=== PATIENT | male | born 1955 | race Caucasian/White ===

== ENCOUNTER 2018-07-21 08:38 | Inpatient (IN) | payer MEDICAID ==
[~2018-07-21] VITALS: Ht 180.3 cm; Wt 63.6 kg
[2018-07-21] MEDS ORDERED: normal saline 1000ML IV soln IVB ONE ×2 (09:10)
[2018-07-21] MEDS ORDERED: ondansetron/PF 4mg/2ml inj IV ONE ×2 (09:10→11:35)
[2018-07-21] MEDS ORDERED: morphine 2 MG/ML inj. syringe IV PRN (09:10)
[2018-07-21] MEDS ORDERED: morphine 4 MG/ML inj SYRINge IV ONE (09:10)
[2018-07-21 09:44] LABS: BASOPHILS % (AUTO) 0.3 % (0-1); EOSINOPHILS % (AUTO) 0 % (0-6); HEMATOCRIT 40.3 % (42.0-52.0); HEMOGLOBIN 13.6 g/dl (14.0-17.9); LYMPHOCYTES # (AUTO) 0.6 X10'3 (1.1-4.8); LYMPHOCYTES % (AUTO) 10.9 % (21-51); MEAN CORPUSCULAR HEMOGLOBIN 31.6 PG (27.0-31.0); MEAN CORPUSCULAR HGB CONC 33.7 % (33.0-36.5); MEAN CORPUSCULAR VOLUME 93.8 FL (78-98); MEAN PLATELET VOLUME 8.3 FL (7.4-10.4); MONOCYTES # (AUTO) 0.2 X10'3 (0-0.9); NEUTROPHILS # (AUTO) 4.9 X10'3 (1.8-7.7); NEUTROPHILS % (AUTO) 85.8 % (42-75); PLATELET COUNT 275 X10'3 (140-440); RED CELL DISTRIBUTION WIDTH 14.8 % (11.5-14.5); WHITE BLOOD COUNT 5.7 X10'3 (4.5-11.0)
[2018-07-21 09:58] LABS: ALANINE AMINOTRANSFERASE 14 U/L (12-78); ALBUMIN 3.9 G/DL (3.4-5.0); ALBUMIN/GLOBULIN RATIO 1.4 (1.1-1.5); ALKALINE PHOSPHATASE 78 IU/L (46-116); ANION GAP 12 (8-16); ASPARTATE AMINO TRANSFERASE 14 U/L (10-37); BILIRUBIN,TOTAL 0.9 MG/DL (0.1-1.0); BLOOD UREA NITROGEN 8 MG/DL (7-18); CALCIUM 9.4 MG/DL (8.5-10.1); CHLORIDE 105 MMOL/L (99-107); CREATININE 0.89 MG/DL (0.60-1.10); GLUCOSE 142 MG/DL (70-104); LIPASE 116 U/L (73-393); POTASSIUM 3.4 MMOL/L (3.5-5.1); SODIUM 140 MMOL/L (135-145); TOTAL CARBON DIOXIDE 23.2 MMOL/L (24-32); TOTAL PROTEIN 6.7 G/DL (6.4-8.2); eGFR 86 ML/MIN
[2018-07-21 10:38] LABS: CLARITY,URINE SLIGHTLY CLOUDY (Clear); COLOR,URINE YELLOW (Yellow); GLUCOSE, URINE NEGATIVE (Neg); KETONES,URINE 15 mg/dl (Neg); LEUKOCYTE ESTERASE ,URINE NEGATIVE (Neg); NITRITES, URINE NEGATIVE (Neg); OCCULT BLOOD,URINE NEGATIVE (Neg); PH,URINE 8.5 (4.8-8.0); PROTEIN,URINE NEGATIVE (Neg); UA COLLECTION TYPE CLN CATCH MIDSTREAM; UROBILINOGEN,URINE 0.2 E.U/dL (0.2-1.0)
[2018-07-21 10:45] LABS: MUCUS STRANDS FEW /LPF (Neg); SQUAMOUS EPITHELIAL CELL,UR FEW /LPF (FEW)
[2018-07-21 10:46] LABS: BACTERIA,URINE NONE SEEN /HPF (Neg); RBC,URINE 0-2 /HPF (0-2); TRANSITIONAL EPI CELLS,URINE FEW /HPF; WBC,URINE NONE SEEN /HPF (0-4)
[2018-07-21] MEDS: K and/or MAG REPLACEMENT MC SCH (12:25)
[2018-07-21] MEDS ORDERED: magnesium hydroxide 30ml (MOM) UD suspension PO PRN (12:25)
[2018-07-21] MEDS ORDERED: mag hydrox/Alum hydrox/simeth 30ml oral suspension PO PRN (12:25)
[2018-07-21] MEDS ORDERED: potassium Cl 20 mEq SR tablet PO PRN ×2 (12:25)
[2018-07-21] MEDS ORDERED: magnesium 1gm/100ml D5W IVPB 100 ML IV PRN (12:25)
[2018-07-21] MEDS ORDERED: potassium Cl 40MEQ/NS 500ml 500 ML IV PRN ×2 (12:25)
[2018-07-21] MEDS ORDERED: acetaminophen 325mg tablet PO PRN ×2 (12:25)
[2018-07-21] MEDS ORDERED: magnesium 4gm in 100ml NS 100 ML IV PRN (12:25)
[2018-07-21] MEDS ORDERED: proCHLORperazine 10 MG/2 ml inj IV ONE (12:25)
[2018-07-21] MEDS ORDERED: ondansetron/PF 4mg/2ml inj IV PRN (12:25)
[2018-07-21] MEDS ORDERED: magnesium Cl slow-release 64mg tablet PO PRN (12:25)
[2018-07-21] MEDS ORDERED: ENZA40CA PO (13:06)
[2018-07-21] MEDS ORDERED: FLO0.4C PO (13:06)
[2018-07-21] MEDS ORDERED: FURO-150 PO (13:07)
[2018-07-21] MEDS ORDERED: POTA20PA40 PO (13:07)
[2018-07-21] MEDS ORDERED: SENN1TAB6 PO (13:08)
[2018-07-21] MEDS ORDERED: MELA3TAB PO (13:08)
[2018-07-21] MEDS ORDERED: PER10325T PO (13:09)
[2018-07-21] MEDS: potassium Cl 20mEq in NS 1,000 ML IV SCH (15:11)
[2018-07-21 17:48] VITALS: BP 134/73
[2018-07-21 18:40] VITALS: BP 125/63
[2018-07-21] MEDS: proCHLORperazine 10 MG/2 ml inj IV PRN (18:52)
[2018-07-21] MEDS: oxyCODONE/APAP 10/325mg tablet PO PRN ×2 (18:57→23:30)
[2018-07-21] MEDS ORDERED: Melatonin 3mg tablet PO SCH (21:00)
[2018-07-22] VITALS: BP 130/61
[2018-07-22] MEDS: proCHLORperazine 10 MG/2 ml inj IV PRN (01:08)
[2018-07-22] MEDS: potassium Cl 20mEq in NS 1,000 ML IV SCH ×2 (01:16→08:25)
[2018-07-22] MEDS: oxyCODONE/APAP 10/325mg tablet PO PRN ×2 (04:49→09:03)
[2018-07-22 05:26] LABS: BASOPHILS % (AUTO) 0.2 % (0-1); EOSINOPHILS # (AUTO) 0.1 X10'3 (0-0.9); HEMATOCRIT 34.1 % (42.0-52.0); HEMOGLOBIN 11.4 g/dl (14.0-17.9); LYMPHOCYTES # (AUTO) 1.4 X10'3 (1.1-4.8); LYMPHOCYTES % (AUTO) 19.5 % (21-51); MEAN CORPUSCULAR HEMOGLOBIN 31.4 PG (27.0-31.0); MEAN CORPUSCULAR HGB CONC 33.3 % (33.0-36.5); MEAN CORPUSCULAR VOLUME 94.3 FL (78-98); MEAN PLATELET VOLUME 8.7 FL (7.4-10.4); MONOCYTES # (AUTO) 0.7 X10'3 (0-0.9); NEUTROPHILS % (AUTO) 69.3 % (42-75); PLATELET COUNT 201 X10'3 (140-440); RED BLOOD COUNT 3.62 X10'6 (4.70-6.10); RED CELL DISTRIBUTION WIDTH 14.6 % (11.5-14.5); WHITE BLOOD COUNT 7.3 X10'3 (4.5-11.0)
[2018-07-22 05:39] LABS: ALANINE AMINOTRANSFERASE 11 U/L (12-78); ALBUMIN 2.9 G/DL (3.4-5.0); ALBUMIN/GLOBULIN RATIO 1.2 (1.1-1.5); ALKALINE PHOSPHATASE 62 IU/L (46-116); ANION GAP 8 (8-16); ASPARTATE AMINO TRANSFERASE 13 U/L (10-37); BILIRUBIN,TOTAL 0.8 MG/DL (0.1-1.0); BLOOD UREA NITROGEN 7 MG/DL (7-18); BUN/CREATININE RATIO 10.8 (5.4-32.0); CHLORIDE 106 MMOL/L (99-107); CREATININE 0.65 MG/DL (0.60-1.10); GLUCOSE 105 MG/DL (70-104); MAGNESIUM 1.5 MG/DL (1.5-2.4); POTASSIUM 3.6 MMOL/L (3.5-5.1); SODIUM 136 MMOL/L (135-145); TOTAL CARBON DIOXIDE 21.9 MMOL/L (24-32); TOTAL PROTEIN 5.3 G/DL (6.4-8.2); eGFR > 90 ML/MIN
[2018-07-22 07:00] VITALS: BP 115/51
[2018-07-22] MEDS ORDERED: tamsulosin 0.4mg capsule PO SCH (08:00)
[2018-07-22] MEDS ORDERED: potassium Cl 20 mEq SR tablet PO SCH (08:00)
[2018-07-22] MEDS ORDERED: ENZALUTAMIDE PO SCH (08:00)
[2018-07-22] MEDS ORDERED: XTANDI 40 MG PO SCH (08:00)
[2018-07-22] MEDS: K and/or MAG REPLACEMENT MC SCH (08:00)
[2018-07-22] MEDS ORDERED: sennosides/docusate sodium tablet PO SCH (08:00)
[2018-07-22 11:00] VITALS: BP 115/51
[2018-07-22] MEDS ORDERED: PROC-8 PO (11:10)
[2018-07-22] MEDS ORDERED: oxyCODONE/APAP 10/325mg tablet PO PRN (11:10)
== END 2018-07-22 15:15 | disposition home or self-care (01) | DRG 249 ==
LOC: ER 08:39 → SUR 3N 13:08
PROVIDERS: ADMIT Family Medicine; ATTEND Family Medicine
DX: R11.2 Nausea with vomiting, unspecified (principal); C79.51 Secondary malignant neoplasm of bone; C79.89 Secondary malignant neoplasm of other specified sites; C61 Malignant neoplasm of prostate; E86.0 Dehydration; E87.6 Hypokalemia; F17.210 Nicotine dependence, cigarettes, uncomplicated; F12.90 Cannabis use, unspecified, uncomplicated; T45.1X5A Adverse effect of antineoplastic and immunosuppressive drugs, initial encounter; Z98.52 Vasectomy status; Z88.8 Allergy status to other drugs, medicaments and biological substances; Z85.840 Personal history of malignant neoplasm of eye; Z82.49 Family history of ischemic heart disease and other diseases of the circulatory system; Z83.3 Family history of diabetes mellitus; Z71.6 Tobacco abuse counseling; Y92.89 Other specified places as the place of occurrence of the external cause
CPT/HCPCS: 36415; 80053; 81001; 83605; 83690; 83735; 85025; 85610; 87040; 87070; 96361; 96374; 96375; 96376; 99285; J0780; J2270; J2405; J3480